=== PATIENT | male | born 1965 | race Caucasian/White ===

== ENCOUNTER 2018-01-10 10:02 | Emergency (ER) | payer MEDICAID ==
[~2018-01-10] VITALS: Ht 185.4 cm; Wt 81.7 kg
[2018-01-10] MEDS ORDERED: VITAMIN B1 (10:15)
[2018-01-10] MEDS ORDERED: FOLIC ACID1 MG PO (10:15)
[2018-01-10] MEDS ORDERED: NALTREXONE HCL50 MG PO (10:16)
[2018-01-10] MEDS ORDERED: CYCLOBENZAPRINE10 MG PO (10:16)
[2018-01-10] MEDS ORDERED: ZOFRAN ODT4 MG PO (10:16)
[2018-01-10] MEDS ORDERED: MOBIC7.5 MG PO (10:17)
[2018-01-10] MEDS ORDERED: TRAZODONE HCL50 MG PO (10:17)
[2018-01-10] MEDS ORDERED: AMLODIPINE BESY10 MG PO (10:18)
[2018-01-10] MEDS ORDERED: CITALOPRAM HBR20 MG PO (10:18)
[2018-01-10] MEDS ORDERED: OMEPRAZOLE20 MG PO (10:19)
[2018-01-10] MEDS ORDERED: BENZONATATE100 MG PO (10:19)
[2018-01-10] MEDS ORDERED: SYMBICORT 80-10.2 GM INH (10:19)
[2018-01-10] MEDS ORDERED: VENTOLIN HFA18 GM INH (10:20)
[2018-01-10] MEDS ORDERED: SPIRIVA18 MCG INH (10:20)
[2018-01-10] MEDS ORDERED: LIBRIUM (10:22)
[2018-01-10] MEDS ORDERED: HYDROXYZINE HCL25 MG PO (10:23)
[2018-01-10] MEDS ORDERED: MELATIN3 MG PO (10:24)
[2018-01-10] MEDS ORDERED: GABAPENTIN300 MG PO (10:24)
[2018-01-10] MEDS ORDERED: PROMETHAZINE HC25 M1 PO (12:31)
== END 2018-01-10 13:10 | disposition home or self-care (01) ==
LOC: ED 10:02
DX: R11.10 Vomiting, unspecified (principal); F10.20 Alcohol dependence, uncomplicated; I10 Essential (primary) hypertension; J44.9 Chronic obstructive pulmonary disease, unspecified; F17.200 Nicotine dependence, unspecified, uncomplicated; Z79.899 Other long term (current) drug therapy; Y90.0 Blood alcohol level of less than 20 mg/100 ml
CPT/HCPCS: 80053; 81001; 83690; 85025; 96374; 96375; 99284; G0480; J2060; J7030